=== PATIENT | female | born 1985 | race African-American/Black ===

== ENCOUNTER 2017-05-07 02:40 | Inpatient (IN) | payer OTHER ==
[2017-05-07] MEDS ORDERED: ELECTROLYTE-148 SOLN 500 ML IV ONE (03:59)
[2017-05-07] MEDS ORDERED: BUTORPHANOL TARTRATE 1 MG/ML VIAL IVPUSH ONE (09:35)
[2017-05-07] MEDS ORDERED: PROMETHAZINE HCL 25 MG/1 ML VIAL IVPUSH ONE (09:36)
[2017-05-07] MEDS ORDERED: AMPICILLIN - 2 GM in SODIUM CHLORIDE 100 ML IVPB ONE (09:36)
[2017-05-07 10:21] VITALS: BMI 35.5
[2017-05-07 10:21] LABS: BASOPHIL 0.3 % (0-2.0); EOSINOPHIL 0.3 % (0-4.5); MCHC 32.7 g/dl (32.0-36.0); MEAN CELL VOLUME 85.7 fl (80-96); MEAN PLT VOLUME 10.4 fl (7.5-11.1); PLATELET COUNT 167 K/MM3 (134-434); RDW 15.8 % (11.6-15.6); WHITE BLOOD COUNT 10.6 K/mm3 (4.0-10.0)
[2017-05-07 10:45] LABS: CO2 21 mmol/L (21-32); CREATININE 0.8 mg/dL (0.55-1.02); GLUCOSE,RANDOM 166 mg/dL (74-106)
[2017-05-07 10:46] LABS: ANION GAP 10 (8-16); CALCIUM 8.3 mg/dL (8.5-10.1)
[2017-05-07 10:55] LABS: INR 1.02 (0.82-1.09); PROTHROMBIN TIME (PATIENT) 11.2 SEC (9.98-11.88)
[2017-05-07] MEDS: AMPICILLIN - 1 GM in SODIUM CHLORIDE 100 ML IVPB SCH ×3 (14:30→22:00)
[2017-05-07] MEDS: ELECTROLYTE-148 SOLN 1,000 ML IV SCH (20:00)
--- NOTE | 2017-05-07 21:11 | HP ---
Past Medical History - Primary Care Physician PCP:: Yesika Johns - Admission Chief Complaint: Early Labor. GDM History of Present Illness: 31 yo EDC EGA 39.3 week admitted in early labor. Pregnacy complicated by obesity and GDM on Gybride History Source: Patient - Past Medical History Pulmonary: Yes: Asthma ...: 4 ...Para: 1 ...Term: 1 ...: 0 ...Spon : 0 ...Induced : 2 ...LMP: 08/04/16 ... Weeks Gestation by Dates: 39.3 ...EDC by Dates: 05/11/17 ...EDC by Sono: 05/10/17 Additional OB History: 2009 5 lb 15 oz ENT: Yes: Allergic Rhinitis Additional Medical History: Chronic back pain. abn pap smears. Back injury. Sleep apnea - Past Surgical History Past Surgical History: Yes: None Hx Myomectomy: No Hx Transabdominal Cerclage: No - Smoking History Smoking history: Never smoked Have you smoked in the past 12 months: No Aproximately how many cigarettes per day: 0 - Alcohol/Substance Use Hx Alcohol Use: No History of Substance Use: reports: None - Social History Usual Living Arrangement: Yes: With Spouse History of Recent Travel: No Home Medications - Allergies Allergies/Adverse Reactions: Allergies Allergy/AdvReac Type Severity Reaction Status Date / Time No Known Allergies Allergy Verified 05/08/17 08:28 - Home Medications Home Medications: Ambulatory Orders Albuterol Sulfate Inhaler - [Ventolin Hfa Inhaler -] 1 - 2 inh PO PRN 09/07/16 Fluticasone Propionate [Flonase Allergy Relief] 9.9 ml NS DAILY 05/06/17 Folic Acid 1 mg PO DAILY 05/06/17 Glyburide 2.5 mg PO BID 05/06/17 Vitamins (Sjr) - 1 tab PO DAILY 05/06/17 Ibuprofen [Motrin -] 600 mg PO QID PRN #28 tablet 05/12/17 Oxycodone HCl/Acetaminophen [Percocet 5-325 mg Tablet -] 1 tab PO Q4H #30 tablet MDD 6 05/12/17 Labetalol HCl [Normodyne -] 200 mg PO Q6H #120 tablet 05/14/17 Review of Systems - Review of Systems Constitutional: reports: No Symptoms Eyes: reports: No Symptoms HENT: reports: No Symptoms Neck: reports: No Symptoms Cardiovascular: reports: No Symptoms Respiratory: reports: No Symptoms Gastrointestinal: reports: No Symptoms Genitourinary: reports: No Symptoms Breasts: reports: No Symptoms Reported Musculoskeletal: reports: No Symptoms Integumentary: reports: No Symptoms Neurological: reports: No Symptoms Endocrine: reports: No Symptoms Hematology/Lymphatic: reports: No Symptoms Psychiatric: reports: No Symptoms Physical Exam - Maternity Vital Signs: Vital Signs Temperature 98.2 F 05/07/17 18:00 Pulse Rate 102 H 05/07/17 20:00 Respiratory Rate 18 05/07/17 20:00 Blood Pressure 138/70 05/07/17 20:00 O2 Sat by Pulse Oximetry (%) Constitutional: Yes: Well Nourished, No Distress Neck: Yes: WNL Cardiovascular: Yes: WNL Lungs: Clear to auscultation Breast(s): Yes: WNL - Abdominal Exam/OB Fundal Height: 40 Number of Fetuses: Single Presentation: Vertex Contractions: Yes Regularity: Irregular Monitor Mode: External Category: I Accelerations: Non-Uniform Decelerations: None - Vaginal Exam/OB Amniotic Membrane Status: Intact Presentation: Vertex/Position Station: -2 - Physical Exam Musculoskeletal: Yes: WNL Extremities: Yes: WNL Edema: No - Labs Lab Results: CBC, BMP 05/07/17 09:55 05/07/17 09:55 Hemorrhage Risk Assessment - Risk Factors Risk Score: 1 Risk Level: Medium Risk Problem List - Problems (1) Labor established Code(s): ALF7208 - (2) Gestational diabetes mellitus (GDM) affecting second Code(s): O24.419 - GESTATIONAL DIABETES MELLITUS IN , UNSP CONTROL O09.40 - SUPERVISION OF W GRAND MULTIPARITY, UNSP TRIMESTER (3) Obesity affecting in third trimester Code(s): O99.213 - OBESITY COMPLICATING , THIRD TRIMESTER Assessment/Plan iup @ 39.3 week Early Labor Hx GDM on gybride obesity Ho sleep apnea Hx asthma Cat 1 Plan finger sticks Pitocin augmentaion
[2017-05-07] MEDS ORDERED: OXYTOCIN 15 UNITS/ LR 250 ML 250 ML IVPB SCH (21:15)
[2017-05-08] MEDS ORDERED: BUTORPHANOL TARTRATE 1 MG/ML VIAL IVPB ONE (01:15)
[2017-05-08] MEDS ORDERED: PROMETHAZINE HCL 25 MG/1 ML VIAL IVPB ONE (01:15)
[2017-05-08] MEDS: AMPICILLIN - 1 GM in SODIUM CHLORIDE 100 ML IVPB SCH ×6 (02:00→22:04)
--- NOTE | 2017-05-08 02:40 | PN ---
Ante-Partal Exam - Subjective Vital Signs: Vital Signs Temperature 97.9 F 05/08/17 01:00 Pulse Rate 93 H 05/08/17 01:00 Respiratory Rate 18 05/08/17 01:00 Blood Pressure 116/60 05/08/17 01:00 O2 Sat by Pulse Oximetry (%) Bleeding: No Headache: No Visual changes: No Right upper quadrant pain: No - Contractions Contractions: Yes - Exam during Labor Category: I Monitor Accelerations: Present Exam: Vaginal Dilatation (cm): 2 Effacement (%): 70 Amniotic Membrane Status: Intact Presentation: Vertex Station: -2 - Intrapartum Hemorrhage Risk Risk Score: 0 Risk Level: Low Risk - Assessment/Plan Assessment/Plan: Labor - 1st stage Hx f prodromal labor Cat 1 Plan continue pitocin
[2017-05-08] MEDS: ELECTROLYTE-148 SOLN 1,000 ML IV SCH ×2 (05:00→19:55)
--- NOTE | 2017-05-08 14:34 | PN ---
Ante-Partal Exam - Subjective Subjective: Pt feeling occasional contractions, ambulating. Vital Signs: Vital Signs Temperature 98.2 F 05/08/17 14:00 Pulse Rate 83 05/08/17 14:00 Respiratory Rate 20 05/08/17 14:00 Blood Pressure 134/81 05/08/17 14:00 O2 Sat by Pulse Oximetry (%) Bleeding: No Headache: No Visual changes: No Right upper quadrant pain: No Pain (scale 1-10): 3 - Contractions Contractions: Yes Regularity: Irregular Intensity: Mild - Exam during Labor Variability: Moderate Category: I Monitor Accelerations: Present Monitor Decelerations: None Exam: Vaginal Dilatation (cm): 2.5 Effacement (%): 70 Amniotic Membrane Status: Intact Presentation: Vertex Station: -2 - Assessment/Plan Assessment/Plan: Continue pitocin augmentation for AROM once begins making progress (4-5cm) GBS positive, continue ampicillin
--- NOTE | 2017-05-08 18:28 | PN ---
Ante-Partal Exam - Subjective Subjective: Pt feeling improved s/p stadol/phenergan, tolerating contractions. Vital Signs: Vital Signs Temperature 98.2 F 05/08/17 14:00 Pulse Rate 89 05/08/17 17:00 Respiratory Rate 20 05/08/17 17:00 Blood Pressure 145/78 05/08/17 17:00 O2 Sat by Pulse Oximetry (%) Bleeding Description: Mild Headache: No Visual changes: No Right upper quadrant pain: No Pain (scale 1-10): 5 - Contractions Contractions: Yes Regularity: Regular Intensity: Mod/Strong - Exam during Labor Heart Rate: 145 Variability: Minimal Category: I Monitor Accelerations: Present Monitor Decelerations: None Exam: Vaginal Dilatation (cm): 3 Amniotic Membrane Status: Ruptured (AROM for light meconium this examination) Presentation: Vertex Station: -2 - Assessment/Plan Assessment/Plan: 31 y/o P1 with SIUP at 39 weeks, early labor now augmented - AFVSS - FHTs cat 1 - s/p AROM for light meconium at this visit, continue with pitocin, continue active management - GBS positive, continue ampicillin
[2017-05-08] MEDS ORDERED: FENTANYL/BUPIVACAINE/NS/PF - PCEA - 50 ML DISP.SYRIN EP SCH (20:15)
--- NOTE | 2017-05-08 21:15 | PN ---
Ante-Partal Exam - Subjective Subjective: Came to evaluate patient for recurrent variable decelerations. Patient feeling pelvic pressure. Vital Signs: Vital Signs Temperature 98.4 F 05/08/17 18:00 Pulse Rate 101 H 05/08/17 18:00 Respiratory Rate 20 05/08/17 18:00 Blood Pressure 125/56 05/08/17 18:00 O2 Sat by Pulse Oximetry (%) Bleeding: Yes Headache: No Visual changes: No Right upper quadrant pain: No Pain (scale 1-10): 2 - Contractions Contractions: Yes Regularity: Regular Intensity: Strong Monitor Mode: External - Exam during Labor Heart Rate: 145 Variability: Moderate Heart Rate Location: [facility] Category: II Monitor Accelerations: Absent Monitor Decelerations: Variable Exam: Vaginal Dilatation (cm): 6 Effacement (%): 90 Amniotic Membrane Status: Ruptured Nitrazine Test: Positive Amniotic Fluid: Meconium Stained Meconium Staining: Light Presentation: Vertex Station: -1 - Assessment/Plan Assessment/Plan: 31 y/o P1 with SIUP at 39 weeks, early labor, augmented - FHTS cat 2 with recurrent variable decels - amnioinfusion started at this time, patient making progress cervix now 6cm, will monitor closely - if no improvement in tracing or if no further progress will plan for delivery
--- NOTE | 2017-05-08 22:32 | PN ---
Ante-Partal Exam - Subjective Subjective: Patient feeling more pain/rectal pressure. Vital Signs: Vital Signs Temperature 98.1 F 05/08/17 21:55 Pulse Rate 115 H 05/08/17 21:30 Respiratory Rate 20 05/08/17 21:30 Blood Pressure 124/68 05/08/17 21:30 O2 Sat by Pulse Oximetry (%) 100 05/08/17 21:30 Bleeding: Yes Bleeding Description: Mild Headache: No Visual changes: No Right upper quadrant pain: No Pain (scale 1-10): 5 - Contractions Contractions: Yes Regularity: Regular Intensity: Strong Monitor Mode: External - Exam during Labor Heart Rate: 150 Variability: Moderate Category: II Monitor Accelerations: Absent Monitor Decelerations: Variable (nonrecurrent) Exam: Vaginal Dilatation (cm): 7 Effacement (%): 90 Amniotic Membrane Status: Ruptured Presentation: Vertex Station: -1 - Assessment/Plan Assessment/Plan: 31 y/o with SIUP at 39+ weeks, early labor now augmented - Fhts improving s/p amnioinfusion - variables now not recurrent and tracing with moderate variability - cervix continues to dilate, now 7cm dilated - pt with discomfort - anesthesia here to give bolus - continue active management and amnioinfusion
[2017-05-08] MEDS ORDERED: ACETAMINOPHEN 1000 MG/100 ML VIAL (NON FORMULARY) IVPB ONE (22:49)
--- NOTE | 2017-05-09 00:54 | PN ---
Ante-Partal Exam - Subjective Subjective: Pt comfortable with contractions. Had another episode of recurrent variables for 3 contractions. Pt was switched to her left side. Pitocin off since 2249. Vital Signs: Vital Signs Temperature 99.8 F H 05/09/17 00:00 Pulse Rate 108 H 05/09/17 00:00 Respiratory Rate 20 05/09/17 00:00 Blood Pressure 119/58 05/09/17 00:00 O2 Sat by Pulse Oximetry (%) 100 05/08/17 23:55 Bleeding: Yes Headache: No Visual changes: No Right upper quadrant pain: No - Contractions Contractions: Yes Regularity: Regular Intensity: Mild Monitor Mode: External - Exam during Labor Heart Rate: 155 Variability: Moderate Category: II Monitor Accelerations: Present Monitor Decelerations: Variable (nonrecurrent) Exam: Vaginal Dilatation (cm): 7-8 Effacement (%): 90 Amniotic Membrane Status: Ruptured Nitrazine Test: Positive Amniotic Fluid: Meconium Stained Meconium Staining: Light Presentation: Vertex Station: -2 - Assessment/Plan Assessment/Plan: 31 y/o with SIUP at 39+ weeks, early labor, augmented - FHTS cat 2, less frequent variable decelerations, continuous monitoring, continue amnioinfusion. Reassuring variability and accels. Will monitori - early labor, augmented, pt oswaldo without pitocin, will leave pitocin off at this time - had fever 100.5 at 2250, s/p 1000mg IV Acetaminophen, Temperature within normal range now - GBS positive, continue ampicillin - continue current management
[2017-05-09] MEDS: AMPICILLIN - 1 GM in SODIUM CHLORIDE 100 ML IVPB SCH ×4 (02:00→17:44)
[2017-05-09] MEDS: ELECTROLYTE-148 SOLN 1,000 ML IV SCH ×3 (05:00→23:17)
--- NOTE | 2017-05-09 05:43 | PN ---
Ante-Partal Exam - Subjective Subjective: Patient comfortable. Continues to have nonrecurrent variable decelerations. Vital Signs: Vital Signs Temperature 98.5 F 05/09/17 04:00 Pulse Rate 110 H 05/09/17 04:30 Respiratory Rate 20 05/09/17 04:30 Blood Pressure 115/55 05/09/17 04:30 O2 Sat by Pulse Oximetry (%) 100 05/09/17 04:30 Bleeding: No Headache: No Visual changes: No Right upper quadrant pain: No Pain (scale 1-10): 0 - Contractions Contractions: Yes Regularity: Regular Intensity: Mild/Mod Monitor Mode: External - Exam during Labor Heart Rate: 155 Variability: Moderate Category: II Monitor Accelerations: Present Monitor Decelerations: Variable Exam: Vaginal Dilatation (cm): 7 Effacement (%): 90 Amniotic Membrane Status: Ruptured Presentation: Vertex Station: -2 - Assessment/Plan Assessment/Plan: 31 y/o with SIUP at 39 weeks, labor, augmented - FHTS cat 2, still with accelerations and now recurrent variable decelerations , will continue to monitor - cervix with no change since 10pm - will plan for delivery due to arrest of dilation and tayla caontinutegory 2 tracing - nursing aware, will inform anesthesia and nursery
[2017-05-09] MEDS ORDERED: oxyCODONE HCL 5 MG TABLET PO PRN (07:21)
[2017-05-09] MEDS ORDERED: METHYLERGONOVINE MALEATE 0.2 MG/1 ML AMP IM PRN (07:21)
[2017-05-09] MEDS ORDERED: ONDANSETRON 4 MG/2 ML VIAL IVPB PRN (08:06)
[2017-05-09] MEDS ORDERED: ACETAMINOPHEN 1000 MG/100 ML VIAL (NON FORMULARY) IVPB PRN (08:08)
[2017-05-09 08:19] LABS: ARTERIAL BLD GAS O2 SATURATION 23.6 % (90-98.9); ARTERIAL BLOOD GAS BASE EXCESS -3.3 meq/l (-2-2); ARTERIAL BLOOD GAS HCO3 23.6 meq/L (22-26)
[2017-05-09 08:23] LABS: ARTERIAL BLOOD GAS pH 7.27 (7.35-7.45)
[2017-05-09 08:24] LABS: ARTERIAL BLOOD GAS PO2 15.4 mmHg (80-100)
--- NOTE | 2017-05-09 08:24 | OP ---
Operative Note - Note: Operative Date: 05/09/17 (dictation number [id number]) Pre-Operative Diagnosis: SIUP at 39 weeiks, arrest of dilation, variable decelerations, category 2 tracing Operation: primary delivery Findings: normal b/l fallopian tubes and ovaries Post-Operative Diagnosis: Same as Pre-op Surgeon: Anna Valdovinos [employer] Operator: Susan Roblero Anesthesiologist/ART SUPERVISOR: Brady Leavitt Anesthesia: Epidural Specimens Removed: placenta, cord blood gases Estimated Blood Loss (mls): 600 Operative Report Dictated: Yes
[2017-05-09 08:25] LABS: VENOUS BLOOD GAS HCO3 21.1 meq/L (19-25); VENOUS PH 7.33 (7.32-7.42)
--- NOTE | 2017-05-09 09:17 | OP ---
DATE OF OPERATION: 05/09/2017 PREOPERATIVE DIAGNOSIS: Arrest of dilation, recurrent variable decelerations, and single intrauterine at 39 weeks. POSTOPERATIVE DIAGNOSIS: Arrest of dilation, recurrent variable decelerations, and single intrauterine at 39 weeks, with delivery of viable male . PROCEDURE: Primary low transverse section. SURGEON: Anna Valdovinos DO LOCOMOTIVE FIRER: Cindi Roblero. ANESTHESIA: Epidural and this was by Brady Leavitt MD, monitored by Ayan Mart MD, and also, Emelia Espinoza MD. ESTIMATED BLOOD LOSS: 600 mL COMPLICATIONS: None. SPECIMENS: Include placenta. FINDINGS: Include normal bilateral fallopian tubes and ovaries. DISPOSITION: Stable to recovery room. BRIEF HISTORY AND DESCRIPTION OF PROCEDURE: Patient is a 31-year-old female who was admitted to labor and delivery on May 07, 2017, with complaints of painful contractions. Patient was observed throughout the day on May 07, 2017, and then, on the evening of May 07, 2017, was noted to have made minimal cervical change. It was decided to augment the patient with Pitocin at this time. Placed on Pitocin throughout the evening on May 07 and throughout the day on May 08, 2017. The patient's membranes were artificially ruptured on the evening of May 08, 2017, for light meconium-stained fluid. The patient was remained on Pitocin throughout the evening, and at approximately 10 p.m., due to recurrent variable decelerations, the Pitocin was discontinued. The patient had received an epidural for pain control, which was keeping the patient comfortable at this time. Due to continued variable decelerations, even without the Pitocin, the patient was kept off the Pitocin throughout the rest of the evening. The patient at this time had arrested at 7 cm dilation. On the morning of May 09, 2017, the patient was re-examined and found to just still be 7 cm dilated. After a discussion of options with the patient, she elected to undergo a primary delivery. The patient was taken back to the operating room. The epidural anesthesia, which she had already received, had been bolused. She was placed in the dorsal supine position. A Reeves catheter was already placed under sterile conditions prior. A hard timeout was performed. Next, a Pfannenstiel skin incision was created in the skin using a scalpel and carried to the underlying layer of rectus fascia with the Bovie. The rectus fascia was incised on either side of the midline with the Bovie, and the fascia was carried in a superolateral direction with the Bovie. The fascia was tented upward and dissected off the underlying layer of rectus muscle with the Bovie. The midline of the musculature was identified. The muscle layers were retracted laterally, and the peritoneum was entered bluntly. A bladder blade was inserted. A transverse incision was created in the uterus with a scalpel, and this incision was carried in a superolateral direction bluntly. The was then delivered from the left occiput posterior position. After delivery of the head, 2 tight nuchal cords were appreciated. Those were reduced after delivery of the head. The remainder of the delivered with ease. The cord was clamped twice and cut in between. The was taken over to the warmer to be assessed by neonatology staff who was present for the entire delivery. The scores were 9 and 9. cord gases were collected, and cord blood was collected at this time. The placenta was manually extracted from the uterus. The uterus was exteriorized from the abdomen, inspected, and cleared of all amniotic membrane and debris with a dry lap sponge. Hysterotomy was then reapproximated in a double-layer closure in a running, locked fashion. Both tubes and ovaries appeared to be normal. The posterior cul-de-sac was suctioned. The uterus was placed back into the abdomen. Bilateral gutters were inspected and cleared of all debris. The hysterotomy was again inspected and noted to be hemostatic. The peritoneal layer was reapproximated in a running fashion using 2-0 chromic suture. The musculature was reapproximated in 2 interrupted sutures using 2-0 chromic as well as Biosyn suture, and the fascia was reapproximated using 1 Vicryl in a running fashion. The subcutaneous tissue was irrigated and reapproximated using 1 Vicryl in a running fashion, and the skin was reapproximated using 3-0 Vicryl in a subcuticular fashion. Steri-Strips were applied. Estimated blood loss was 600 mL. Sponge, needle, and instrument count was reported to be correct. The patient tolerated the procedure well, was recovering in stable condition in the recovery room at the time of this dictation. ANNA VALDOVINOS DO /[id number]
--- NOTE | 2017-05-09 09:22 | SURG ---
Surgery School Admissions Representative Note School Admissions Representative: Susan Roblero PA-C Date of Service: 05/09/17 Diagnosis: SIUP at 39 weeiks, arrest of dilation, variable decelerations, category 2 tracing Procedure: primary delivery I was present for the entirety of the operative procedure. For further detail, please refer to operative report. Visit type - Case Type Case Type: ED Admission - New patient This patient is new to me today: Yes Date on this admission: 05/09/17
[2017-05-09] MEDS: FERROUS SO4 325 MG TABLET (FP) PO SCH ×3 (10:33→23:19)
[2017-05-09] MEDS: PRENATAL VITAMINS W/ FOLIC ACID TABLET (FP) PO SCH (10:33)
[2017-05-09] MEDS: OXYTOCIN 20 UNITS in 0.9% NS 1,000 ML IV SCH ×2 (11:25→20:01)
[2017-05-09] MEDS: IBUPROFEN 800 MG/8 ML IJ IVPB PRN ×2 (15:33→22:57)
[2017-05-09] MEDS: SIMETHICONE 80 MG TAB.CHEW (FP) PO PRN (22:58)
[2017-05-10] MEDS: oxyCODONE HCL 5 MG TABLET PO PRN ×6 (02:13→22:32)
[2017-05-10] MEDS: SIMETHICONE 80 MG TAB.CHEW (FP) PO PRN ×6 (02:13→22:30)
[2017-05-10] MEDS: IBUPROFEN 600 MG TABLET (FP) PO PRN ×5 (05:07→22:33)
[2017-05-10] MEDS ORDERED: BISACODYL 10 MG SUPP.RECT RC PRN (07:22)
[2017-05-10 08:15] LABS: BASOPHIL 0.4 % (0-2.0); EOSINOPHIL 0.3 % (0-4.5); MCHC 32.2 g/dl (32.0-36.0); MEAN CELL VOLUME 87.1 fl (80-96); MEAN PLT VOLUME 9.8 fl (7.5-11.1); PLATELET COUNT 144 K/MM3 (134-434); RDW 15.8 % (11.6-15.6); WHITE BLOOD COUNT 13.3 K/mm3 (4.0-10.0)
--- NOTE | 2017-05-10 09:00 | PN ---
Post Progress Note - Subjective Subjective: Pt seen/evaluated at bedside. Patient doing well, pain controlled. Tolerating clears, ambulating. Voiding. VB minimal. Denies CP/SOB/F/C/HALL. No other complaints/concerns. Type of Delivery: Repeat C/S Vital Signs: Vital Signs Temperature 98.6 F 05/10/17 05:23 Pulse Rate 98 H 05/10/17 05:23 Respiratory Rate 18 05/10/17 05:23 Blood Pressure 120/61 05/10/17 05:23 O2 Sat by Pulse Oximetry (%) 100 05/09/17 09:45 Breast Exam: Yes: Soft Uterus: Yes: Fundus Firm, Fundus below umbilicus Incision: Yes: Dressing dry and intact Abdomen/GI: Yes: Abdomen soft, Tender (appropriately TTP), Tolerating PO. No: Abdominal Distention Lochia: Yes: Rubra Lochia, amount: Small Extremities: Yes: Calves non-tender, Edema (trace LE edema b/l) Perineum: Yes: Intact Activity: Ambulating - Labs Labs: CBC WBC 13.3 K/mm3 (4.0-10.0) H 05/10/17 07:50 RBC 3.16 M/mm3 (3.60-5.2) L 05/10/17 07:50 Hgb 8.9 GM/dL (10.7-15.3) L D 05/10/17 07:50 Hct 27.5 % (32.4-45.2) L D 05/10/17 07:50 MCV 87.1 fl (80-96) 05/10/17 07:50 MCHC 32.2 g/dl (32.0-36.0) 05/10/17 07:50 RDW 15.8 % (11.6-15.6) H 05/10/17 07:50 Plt Count 144 K/MM3 (134-434) 05/10/17 07:50 MPV 9.8 fl (7.5-11.1) 05/10/17 07:50 Neutrophils % 79.0 % (42.8-82.8) 05/10/17 07:50 Lymphocytes % 15.5 % (8-40) 05/10/17 07:50 Monocytes % 4.8 % (3.8-10.2) 05/10/17 07:50 Eosinophils % 0.3 % (0-4.5) 05/10/17 07:50 Basophils % 0.4 % (0-2.0) 05/10/17 07:50 Problem List - Problems (1) delivery delivered Code(s): O82 - ENCOUNTER FOR DELIVERY WITHOUT INDICATION (2) Anemia Code(s): D64.9 - ANEMIA, UNSPECIFIED Assessment/Plan 31 y/o POD # 1 s/p primary delivery due to arrest of dilation and recurrent variable decelerations - AFVSS - Hgb 8.9 post op - continue pills and PO Iron - advance diet as tolerated - PO pain meds - routine care
--- NOTE | 2017-05-10 10:00 | PN ---
Progress Note (short form) - Note Progress Note: POD #1 - s/p under epidural anesthesia. Pt. doing well, resting comfortably in bed. No complaints. Good pain control. No apparent anesthetic complications noted. Continue current care.
[2017-05-10] MEDS: PRENATAL VITAMINS W/ FOLIC ACID TABLET (FP) PO SCH (11:10)
[2017-05-10] MEDS: FERROUS SO4 325 MG TABLET (FP) PO SCH (11:10)
[2017-05-10] MEDS: ENOXAPARIN NA (PORCINE) 40 MG/0.4 ML DISP.SYRIN SQ SCH (11:10)
[2017-05-11] MEDS: SIMETHICONE 80 MG TAB.CHEW (FP) PO PRN ×4 (04:30→17:29)
[2017-05-11] MEDS: oxyCODONE HCL 5 MG TABLET PO PRN ×5 (04:32→21:33)
[2017-05-11] MEDS: IBUPROFEN 600 MG TABLET (FP) PO PRN ×5 (04:33→21:34)
--- NOTE | 2017-05-11 08:40 | PN ---
Post Progress Note - Subjective Subjective: Patient seen and evaluated, doing well. Post Day: 2 Type of Delivery: Repeat C/S Vital Signs: Vital Signs Temperature 98.4 F 05/11/17 07:30 Pulse Rate 94 H 05/11/17 07:30 Respiratory Rate 20 05/11/17 07:30 Blood Pressure 132/95 05/11/17 07:30 O2 Sat by Pulse Oximetry (%) 100 05/09/17 09:45 Breast Exam: Yes: Soft Uterus: Yes: Fundus Firm Incision: Yes: Dressing dry and intact Abdomen/GI: Yes: Abdomen soft, Tolerating PO Lochia: Yes: Rubra Lochia, amount: Small Extremities: Yes: Calves non-tender Perineum: Yes: Intact Activity: Ambulating - Labs Labs: CBC WBC 13.3 K/mm3 (4.0-10.0) H 05/10/17 07:50 RBC 3.16 M/mm3 (3.60-5.2) L 05/10/17 07:50 Hgb 8.9 GM/dL (10.7-15.3) L D 05/10/17 07:50 Hct 27.5 % (32.4-45.2) L D 05/10/17 07:50 MCV 87.1 fl (80-96) 05/10/17 07:50 MCHC 32.2 g/dl (32.0-36.0) 05/10/17 07:50 RDW 15.8 % (11.6-15.6) H 05/10/17 07:50 Plt Count 144 K/MM3 (134-434) 05/10/17 07:50 MPV 9.8 fl (7.5-11.1) 05/10/17 07:50 Neutrophils % 79.0 % (42.8-82.8) 05/10/17 07:50 Lymphocytes % 15.5 % (8-40) 05/10/17 07:50 Monocytes % 4.8 % (3.8-10.2) 05/10/17 07:50 Eosinophils % 0.3 % (0-4.5) 05/10/17 07:50 Basophils % 0.4 % (0-2.0) 05/10/17 07:50 Problem List - Problems (1) Status post repeat low transverse section Code(s): Z98.891 - HISTORY OF UTERINE SCAR FROM PREVIOUS SURGERY Assessment/Plan Status post repeat Continue ambulation Analgesia as needed Continue Post op care
[2017-05-11] MEDS: PRENATAL VITAMINS W/ FOLIC ACID TABLET (FP) PO SCH (09:25)
[2017-05-11] MEDS: ENOXAPARIN NA (PORCINE) 40 MG/0.4 ML DISP.SYRIN SQ SCH (09:26)
[2017-05-11] MEDS: FERROUS SO4 325 MG TABLET (FP) PO SCH ×2 (09:26→21:33)
[2017-05-11] MEDS: SENNOSIDES/DOCUSATE COMBO (SENNA PLUS) TABLET (UD) PO SCH (21:33)
[2017-05-12] MEDS: IBUPROFEN 600 MG TABLET (FP) PO PRN (02:08)
[2017-05-12] MEDS: oxyCODONE HCL 5 MG TABLET PO PRN ×5 (02:09→22:07)
[2017-05-12] MEDS: SIMETHICONE 80 MG TAB.CHEW (FP) PO PRN ×5 (02:09→22:07)
[2017-05-12] MEDS ORDERED: oxyCODONE HCL 5 MG TABLET ONE (08:13)
[2017-05-12 08:17] LABS: BASOPHIL 0.4 % (0-2.0); EOSINOPHIL 1.3 % (0-4.5); MCH 28.7 pg (25.7-33.7); MCHC 33.1 g/dl (32.0-36.0); MEAN CELL VOLUME 86.9 fl (80-96); MEAN PLT VOLUME 9.1 fl (7.5-11.1); PLATELET COUNT 185 K/MM3 (134-434); RDW 15.9 % (11.6-15.6); WHITE BLOOD COUNT 9.3 K/mm3 (4.0-10.0)
[2017-05-12] MEDS ORDERED: oxyCODONE HCL 5 MG TABLET PO PRN (08:25)
[2017-05-12] MEDS: ACETAMINOPHEN 325 MG TABLET (FP) PO PRN ×4 (08:29→22:08)
--- NOTE | 2017-05-12 08:59 | DS ---
Physical Exam-GUEST ADVISOR Vital Signs: Vital Signs Temperature 97.9 F 05/11/17 21:53 Pulse Rate 89 05/12/17 02:00 Respiratory Rate 20 05/11/17 21:53 Blood Pressure 143/89 05/12/17 02:00 O2 Sat by Pulse Oximetry (%) 100 05/09/17 09:45 Labs: CBC, BMP 05/12/17 07:50 05/07/17 09:55 Delivery - Delivery Type of Anesthesia: Epidural Episiotomy/Laceration: None EBL (cc): 600 Delivery, Single - Stages of Labor Date 1st Stage Initiatied: 05/07/17 Time 1st Stage Initiated: 11:30 Date of Delivery: 05/09/17 Time of Delivery: 07:51 Time Placenta Delivered: 07:52 - Condition of Infant Treatment Counselor/Routeman Present: Yes Name: Jessica Clark Gender: Male Weight: 7 lb 11 oz Position: Left, OP Total Hours ROM (Hrs/Mins): 13hrs 37min - 1 Minute Total Score: 9 5 Minutes Total Score: 9 - Feeding Plan Initial Plan: Elected not to breastfeed exclusively throughout hospitalization Discharge Summary Reason For Visit: LABOR Current Active Problems Anemia (Acute) delivery delivered (Acute) Labor established (Acute) Status post repeat low transverse section (Acute) Condition: Good - Instructions Disposition: HOME - Home Medications Comprehensive Discharge Medication List: Ambulatory Orders Albuterol Sulfate Inhaler - [Ventolin Hfa Inhaler -] 1 - 2 inh PO PRN 09/07/16 Fluticasone Propionate [Flonase Allergy Relief] 9.9 ml NS DAILY 05/06/17 RX: Folic Acid 1 mg PO DAILY 05/06/17 RX: Glyburide 2.5 mg PO BID 05/06/17 RX: Vitamins (Sjr) - 1 tab PO DAILY 05/06/17
[2017-05-12] MEDS: FERROUS SO4 325 MG TABLET (FP) PO SCH ×2 (09:23→22:07)
[2017-05-12] MEDS: PRENATAL VITAMINS W/ FOLIC ACID TABLET (FP) PO SCH (09:23)
[2017-05-12] MEDS: ENOXAPARIN NA (PORCINE) 40 MG/0.4 ML DISP.SYRIN SQ SCH (09:26)
[2017-05-12 10:50] LABS: ALBUMIN 1.9 g/dl (3.4-5.0); ANION GAP 8 (8-16); BILIRUBIN,TOTAL 0.3 mg/dL (0.2-1.0); CALCIUM 8.2 mg/dL (8.5-10.1); CO2 26 mmol/L (21-32); CREATININE 0.5 mg/dL (0.55-1.02); GLUCOSE,RANDOM 134 mg/dL (74-106); SGOT/AST 28 U/L (15-37); SGPT/ALT 21 U/L (12-78); TOT PROT 5.3 g/dl (6.4-8.2)
[2017-05-12 10:51] LABS: ALK PHOS 84 U/L (45-117)
[2017-05-12 11:09] LABS: URIC ACID 2.7 mg/dL (2.6-7.2)
[2017-05-12] MEDS: NIFEdipine E.R. 30 MG TABLET (FP) PO SCH (16:35)
--- NOTE | 2017-05-12 16:53 | PN ---
Post Progress Note - Subjective Subjective: Pt seen/evaluated, doing well. Patient with elevated BPs this a.m., most recently as high as 161/101. Patient with slight HALL but no RUQ pain or changes in vision. HELLP/PreEclampsia labs all WNL. Pt with no h/o HTN. Type of Delivery: Primary C/S Vital Signs: Vital Signs Temperature 98.4 F 05/12/17 08:00 Pulse Rate 90 05/12/17 15:01 Respiratory Rate 20 05/12/17 08:00 Blood Pressure 161/101 05/12/17 15:01 O2 Sat by Pulse Oximetry (%) 100 05/09/17 09:45 Uterus: Yes: Fundus Firm, Fundus below umbilicus Incision: Yes: Sutures intact Abdomen/GI: Yes: Abdomen soft, Abdominal Distention (mild distention), Passing flatus, Tolerating PO. No: Tender Lochia, amount: Small Extremities: Yes: Calves non-tender, Edema (+1 LE Edema bilaterally, +2 reflexes, no clonus) Perineum: Yes: Intact Activity: Ambulating - Labs Labs: CBC WBC 9.3 K/mm3 (4.0-10.0) D 05/12/17 07:50 RBC 3.21 M/mm3 (3.60-5.2) L 05/12/17 07:50 Hgb 9.2 GM/dL (10.7-15.3) L 05/12/17 07:50 Hct 27.9 % (32.4-45.2) L 05/12/17 07:50 MCV 86.9 fl (80-96) 05/12/17 07:50 MCHC 33.1 g/dl (32.0-36.0) 05/12/17 07:50 RDW 15.9 % (11.6-15.6) H 05/12/17 07:50 Plt Count 185 K/MM3 (134-434) D 05/12/17 07:50 MPV 9.1 fl (7.5-11.1) 05/12/17 07:50 Neutrophils % 74.0 % (42.8-82.8) 05/12/17 07:50 Lymphocytes % 19.6 % (8-40) D 05/12/17 07:50 Monocytes % 4.7 % (3.8-10.2) 05/12/17 07:50 Eosinophils % 1.3 % (0-4.5) D 05/12/17 07:50 Basophils % 0.4 % (0-2.0) 05/12/17 07:50 Problem List - Problems (1) delivery delivered Code(s): O82 - ENCOUNTER FOR DELIVERY WITHOUT INDICATION (2) Anemia Code(s): D64.9 - ANEMIA, UNSPECIFIED (3) Gestational hypertension without significant proteinuria, Code(s): O13.5 - GESTATNL HTN WITHOUT SIGNIFICANT PROTEIN, COMP THE PUERP Assessment/Plan 31 y/o post op day 3 from primary delivery - AFebrile - elevated BPs, to start on oral antihypertensives. Labs WNL. If non responsive to meds, will consult nephrology in a.m. Tylenol PRN headache. - Regular diet, PO pain meds, ambulation, lovenox for VTE PPx - routine care
[2017-05-12] MEDS: SENNOSIDES/DOCUSATE COMBO (SENNA PLUS) TABLET (UD) PO SCH (22:07)
[2017-05-13] MEDS: oxyCODONE HCL 5 MG TABLET PO PRN ×5 (02:23→21:33)
[2017-05-13] MEDS: ACETAMINOPHEN 325 MG TABLET (FP) PO PRN ×5 (02:23→21:31)
[2017-05-13] MEDS: SIMETHICONE 80 MG TAB.CHEW (FP) PO PRN ×5 (02:23→21:34)
[2017-05-13] MEDS: NIFEdipine E.R. 30 MG TABLET (FP) PO SCH (10:19)
[2017-05-13] MEDS: FERROUS SO4 325 MG TABLET (FP) PO SCH ×2 (10:19→21:33)
[2017-05-13] MEDS: PRENATAL VITAMINS W/ FOLIC ACID TABLET (FP) PO SCH (10:19)
[2017-05-13] MEDS: ENOXAPARIN NA (PORCINE) 40 MG/0.4 ML DISP.SYRIN SQ SCH (10:20)
--- NOTE | 2017-05-13 11:56 | PN ---
Post Progress Note - Subjective Subjective: Pt seen/evaluated and doing well. Eating, tolerting diet, voiding, pasing flatus. Blood pressures mostly in mild range with some severe range outliers. Denies HALL/RUQp pain/changes in vision. Now on Procardia XL daily. Type of Delivery: Primary C/S Vital Signs: Vital Signs Temperature 98.0 F 05/12/17 22:00 Pulse Rate 105 H 05/13/17 11:44 Respiratory Rate 20 05/13/17 11:44 Blood Pressure 142/91 05/13/17 11:44 O2 Sat by Pulse Oximetry (%) 100 05/09/17 09:45 Uterus: Yes: Fundus Firm, Fundus below umbilicus Incision: Yes: Sutures intact Abdomen/GI: Yes: Abdomen soft, Passing flatus, Tolerating PO. No: Abdominal Distention, Tender Lochia: Yes: Rubra Lochia, amount: Small Extremities: Yes: Edema (+1 LE edema b/l ) Perineum: Yes: Intact Activity: Ambulating - Labs Labs: CBC WBC 9.3 K/mm3 (4.0-10.0) D 05/12/17 07:50 RBC 3.21 M/mm3 (3.60-5.2) L 05/12/17 07:50 Hgb 9.2 GM/dL (10.7-15.3) L 05/12/17 07:50 Hct 27.9 % (32.4-45.2) L 05/12/17 07:50 MCV 86.9 fl (80-96) 05/12/17 07:50 MCHC 33.1 g/dl (32.0-36.0) 05/12/17 07:50 RDW 15.9 % (11.6-15.6) H 05/12/17 07:50 Plt Count 185 K/MM3 (134-434) D 05/12/17 07:50 MPV 9.1 fl (7.5-11.1) 05/12/17 07:50 Neutrophils % 74.0 % (42.8-82.8) 05/12/17 07:50 Lymphocytes % 19.6 % (8-40) D 05/12/17 07:50 Monocytes % 4.7 % (3.8-10.2) 05/12/17 07:50 Eosinophils % 1.3 % (0-4.5) D 05/12/17 07:50 Basophils % 0.4 % (0-2.0) 05/12/17 07:50 Problem List - Problems (1) delivery delivered Code(s): O82 - ENCOUNTER FOR DELIVERY WITHOUT INDICATION (2) Anemia Code(s): D64.9 - ANEMIA, UNSPECIFIED (3) Gestational hypertension without significant proteinuria, Code(s): O13.5 - GESTATNL HTN WITHOUT SIGNIFICANT PROTEIN, COMP THE PUERP Assessment/Plan 31 y/o post op day 4 from primary delivery - AFebrile - elevated BPs, Now on Procardia XL 30mg daily . Labs WNL yesterday. BP responds to medication will send Rx with patient upon discharge. Will trend BPs for the remainder of the morning and if remain >160/100 will discharge home with close follow up in office and preEclampsia precautions. Tylenol PRN headache. - Regular diet, PO pain meds, ambulation, lovenox for VTE PPx - routine care
--- NOTE | 2017-05-13 14:16 | PATH ---
Surgical Pathology Report Patient Name: REI MOREAU [facility]. Rec. #: [id number] /Age/Gender: 1985 (Age: 31) / F Account: [id number] Location: [facility] OBS/DOCTOR OF AUDIOLOGY Taken: 05/09/2017 Received: 05/09/2017 Reported: 05/13/2017 Physicians: Yesika Johns M.D. Specimen(s) Received PLACENTA Clinical History , 39.6 weeks gestation, nonreassuring heart rate, arrest of dilatation Primary c/section Final Diagnosis PLACENTA, DELIVERY: FOCALLY DISRUPTED THIRD TRIMESTER PLACENTA WITH MODERATE PREVILLOUS, PERIVILLOUS, AND PRECHORIONIC FIBRIN DEPOSITION, THREE VESSEL UMBILICAL CORD, AND PLACENTAL MEMBRANES WITH FOCAL AMNION HYPERPLASIA. Electronically Signed Eh George M.D. Gross Description The specimen is received fresh, labeled "placenta" and is a 631 gram, 25.0 x 25.0 x 1.5 cm placenta with attached membranes and umbilical cord. The attached membranes are camacho, translucent with focal opacities and insert marginally. The umbilical cord measures 28 cm in length and averages 1.1 cm in diameter. The cord inserts eccentrically, 5 cm to the nearest margin. No true knots or strictures are identified. Cut surface of the umbilical cord reveals 3 vessels. The surface is alan-blue with fibrin deposition and appropriate caliber vessels. The maternal surface is red-brown with focal defects. Sectioning reveals red-brown, spongy parenchyma. No focal lesions are identified. Spa Assistant Manager sections are submitted in three cassettes as follows: 1- membrane rolls and umbilical cord; 2-3- full thickness sections of placenta. 05/10/2017 [facility]05/10/2017
[2017-05-13] MEDS: LABETALOL HCL 200 MG TABLET (FP) PO PRN ×2 (15:29→21:33)
--- NOTE | 2017-05-13 15:34 | CONSULT ---
Consult Consult Specialty:: Nephrology Drs. Dasilva/ Cuco) Referred by:: Dr. Valdovinos Reason for Consultation:: Hypertension and Tachycardia in patient - History of Present Illness Chief Complaint: The patient is 31 y/o AA female who had LSCS last week, second baby. Developed Hypertension post . Reports that her first was normal and that there was no issues. - History Source History Provided By: Patient Limitations to Obtaining History: No Limitations - Past Medical History Pulmonary: No: Asthma, Cancer, COPD Gastrointestinal: No: Constipation Renal/: No: Renal Failure ...LMP: 07/15/16 Heme/Onc: Yes: Anemia Psych: No: Addictions, Depression - Alcohol/Substance Use Hx Alcohol Use: No - Smoking History Smoking history: Never smoked Have you smoked in the past 12 months: No Aproximately how many cigarettes per day: 0 Home Medications - Allergies Allergies/Adverse Reactions: Allergies Allergy/AdvReac Type Severity Reaction Status Date / Time No Known Allergies Allergy Verified 05/08/17 08:28 - Home Medications Home Medications: Ambulatory Orders Albuterol Sulfate Inhaler - [Ventolin Hfa Inhaler -] 1 - 2 inh PO PRN 09/07/16 Fluticasone Propionate [Flonase Allergy Relief] 9.9 ml NS DAILY 05/06/17 Folic Acid 1 mg PO DAILY 05/06/17 Glyburide 2.5 mg PO BID 05/06/17 Vitamins (Sjr) - 1 tab PO DAILY 05/06/17 Ibuprofen [Motrin -] 600 mg PO QID PRN #28 tablet 05/12/17 Oxycodone HCl/Acetaminophen [Percocet 5-325 mg Tablet -] 1 tab PO Q4H #30 tablet MDD 6 05/12/17 Nifedipine ER [Procardia Xl -] 30 mg PO DAILY #30 tab.er.24 05/13/17 Physical Exam Vital Signs: Vital Signs Temperature 98.0 F 05/12/17 22:00 Pulse Rate 111 H 05/13/17 15:13 Respiratory Rate 20 05/13/17 15:13 Blood Pressure 140/87 05/13/17 15:13 O2 Sat by Pulse Oximetry (%) 100 05/09/17 09:45 Constitutional: Yes: Well Nourished, No Distress, Anxious, Other (wants to go home) Eyes: Yes: WNL HENT: Yes: Atraumatic, Normocephalic Neck: Yes: Trachea Midline Cardiovascular: Yes: Regular Rate and Rhythm, Tachycardia, S1, S2, Other (Hear rate 110/ min). No: JVD Respiratory: Yes: CTA Bilaterally, Diminished Gastrointestinal: Yes: Normal Bowel Sounds Edema: Yes Edema: LLE: 1+, RLE: 1+ Labs: CBC, BMP 05/12/17 07:50 05/12/17 10:00 Problem List - Problems (1) Anemia Code(s): D64.9 - ANEMIA, UNSPECIFIED (2) delivery delivered Code(s): O82 - ENCOUNTER FOR DELIVERY WITHOUT INDICATION (3) Gestational hypertension without significant proteinuria, Code(s): O13.5 - GESTATNL HTN WITHOUT SIGNIFICANT PROTEIN, COMP THE PUERP Assessment/Plan 31 y/o female has developed Post Hypertension. BP not adequately controlled on Nifedipine. Developed Tachycardia on the Nifedipine. Patient denies any associated symptoms of headache, blurry vision, chest pain etc. PLAN: D/C Nifedipine Start on Labetelol 200 mg stat and q6H and Hold the meds if the BP runs too low. Patient planning to nurse the baby. It is not safe to discharge her today. The Tachycardia, while explainable on the Nifedipine, can also be totally unrelated. If not improving on the Labetelol, may require out patient work up. Thank you. Will follow with you. Susana Dasilva MD
[2017-05-13] MEDS: SENNOSIDES/DOCUSATE COMBO (SENNA PLUS) TABLET (UD) PO SCH (21:32)
[2017-05-13 22:29] VITALS: TEMP 98.7
[2017-05-14] MEDS: oxyCODONE HCL 5 MG TABLET PO PRN ×2 (02:24→07:23)
[2017-05-14] MEDS: ACETAMINOPHEN 325 MG TABLET (FP) PO PRN ×2 (02:24→07:24)
[2017-05-14] MEDS: SIMETHICONE 80 MG TAB.CHEW (FP) PO PRN ×2 (02:26→07:23)
[2017-05-14] MEDS: LABETALOL HCL 200 MG TABLET (FP) PO PRN ×2 (02:27→07:33)
[2017-05-14] MEDS: FERROUS SO4 325 MG TABLET (FP) PO SCH (10:03)
[2017-05-14] MEDS: PRENATAL VITAMINS W/ FOLIC ACID TABLET (FP) PO SCH (10:03)
[2017-05-14] MEDS: ENOXAPARIN NA (PORCINE) 40 MG/0.4 ML DISP.SYRIN SQ SCH (10:03)
--- NOTE | 2017-05-14 10:23 | PN ---
Progress Note (SOAP) - Subjective Chief Complaint: Pt doing well pt switched to 200mg po awaiting renal consult - Current Medications Current Medications: Active Medications Acetaminophen (Tylenol -) 650 mg PO Q4H PRN PRN Reason: FEVER OR PAIN Last Admin: 05/14/17 07:24 Dose: 650 mg Bisacodyl (Dulcolax Suppository -) 10 mg RC PRN PRN PRN Reason: CONSTIPATION Last Admin: 05/10/17 18:06 Dose: 10 mg Diphenhydramine HCl (Benadryl Injection -) 25 mg IVPUSH Q4H PRN PRN Reason: Pruritis Last Admin: 05/09/17 20:01 Dose: 25 mg Enoxaparin Sodium (Lovenox -) 40 mg SQ DAILY [facility] Last Admin: 05/14/17 10:03 Dose: 40 mg Ferrous Sulfate (Feosol -) 325 mg PO BID [facility] Last Admin: 05/14/17 10:03 Dose: 325 mg Labetalol HCl (Normodyne -) 200 mg PO Q6H PRN PRN Reason: HYPERTENSION Last Admin: 05/14/17 07:33 Dose: 200 mg Methylergonovine Maleate (Methergine Injection -) 0.2 mg IM Q4H PRN PRN Reason: Excessive Bleeding (L&D) Oxycodone HCl (Roxicodone -) 5 mg PO Q4H PRN PRN Reason: PAIN LEVEL 1-5 Oxycodone HCl (Roxicodone -) 10 mg PO Q4H PRN PRN Reason: PAIN LEVEL 6-10 Last Admin: 05/14/17 07:23 Dose: 10 mg Multivit/Folic Acid/Iron ( Vitamins (Sjr) -) 1 tab PO DAILY [facility] Last Admin: 05/14/17 10:03 Dose: 1 tab Senna/Docusate Sodium (Pericolace -) 2 tablet PO HS [facility] Last Admin: 05/13/17 21:32 Dose: 2 tablet Simethicone (Mylicon -) 80 mg PO Q4H PRN PRN Reason: GAS Last Admin: 05/14/17 07:23 Dose: 80 mg - Objective Vital Signs: Vital Signs Temperature 98.7 F 05/13/17 21:30 Pulse Rate 94 H 05/14/17 05:44 Respiratory Rate 18 05/14/17 05:44 Blood Pressure 132/76 05/14/17 05:44 O2 Sat by Pulse Oximetry (%) 100 05/09/17 09:45 Constitutional: Yes: Well Nourished, No Distress Respiratory: Yes: WNL, Regular, CTA Bilaterally Gastrointestinal: Yes: WNL ....Post : Yes: Uterus firm, Uterus non-tender Breast(s): Yes: WNL Musculoskeletal: Yes: WNL Extremities: Yes: WNL Edema: No Wound/Incision: Yes: Clean/Dry, Well Approximated, Steri Strips Neurological: Yes: WNL, Alert, Oriented Psychiatric: Yes: WNL, Alert, Oriented Labs Lab Results: CBC, BMP 05/12/17 07:50 05/12/17 10:00 Problem List - Problems (1) Labor established Code(s): [id number] - Assessment/Plan SP CS POD 5 Anemia gestational Htn GDM Obesity Plan OOB DC home in am if renal clears fu with renal continue labetalol
--- NOTE | 2017-05-14 10:54 | PN ---
Progress Note, Physician Chief Complaint: Patient doing well. Excellent BP control. 134/ 74 Heart rate down to 94 /min No chest pain, No shortness of breath. Good urine output. - Current Medication List Current Medications: Active Medications Acetaminophen (Tylenol -) 650 mg PO Q4H PRN PRN Reason: FEVER OR PAIN Last Admin: 05/14/17 07:24 Dose: 650 mg Bisacodyl (Dulcolax Suppository -) 10 mg RC PRN PRN PRN Reason: CONSTIPATION Last Admin: 05/10/17 18:06 Dose: 10 mg Diphenhydramine HCl (Benadryl Injection -) 25 mg IVPUSH Q4H PRN PRN Reason: Pruritis Last Admin: 05/09/17 20:01 Dose: 25 mg Enoxaparin Sodium (Lovenox -) 40 mg SQ DAILY [facility] Last Admin: 05/14/17 10:03 Dose: 40 mg Ferrous Sulfate (Feosol -) 325 mg PO BID [facility] Last Admin: 05/14/17 10:03 Dose: 325 mg Labetalol HCl (Normodyne -) 200 mg PO Q6H PRN PRN Reason: HYPERTENSION Last Admin: 05/14/17 07:33 Dose: 200 mg Methylergonovine Maleate (Methergine Injection -) 0.2 mg IM Q4H PRN PRN Reason: Excessive Bleeding (L&D) Oxycodone HCl (Roxicodone -) 5 mg PO Q4H PRN PRN Reason: PAIN LEVEL 1-5 Oxycodone HCl (Roxicodone -) 10 mg PO Q4H PRN PRN Reason: PAIN LEVEL 6-10 Last Admin: 05/14/17 07:23 Dose: 10 mg Multivit/Folic Acid/Iron ( Vitamins (Sjr) -) 1 tab PO DAILY [facility] Last Admin: 05/14/17 10:03 Dose: 1 tab Senna/Docusate Sodium (Pericolace -) 2 tablet PO HS [facility] Last Admin: 05/13/17 21:32 Dose: 2 tablet Simethicone (Mylicon -) 80 mg PO Q4H PRN PRN Reason: GAS Last Admin: 05/14/17 07:23 Dose: 80 mg - Objective Vital Signs: Vital Signs Temperature 98.7 F 05/13/17 21:30 Pulse Rate 94 H 05/14/17 05:44 Respiratory Rate 18 05/14/17 05:44 Blood Pressure 132/76 05/14/17 05:44 O2 Sat by Pulse Oximetry (%) 100 05/09/17 09:45 Constitutional: Yes: Well Nourished, Calm Eyes: Yes: Conjunctiva Clear HENT: Yes: Normocephalic Respiratory: Yes: CTA Bilaterally Gastrointestinal: Yes: Normal Bowel Sounds, Soft Edema: LLE: Trace, RLE: Trace Neurological: Yes: Alert, Oriented Psychiatric: Yes: Alert, Oriented Labs: CBC, BMP 05/12/17 07:50 05/12/17 10:00 INR, PTT INR 1.02 (0.82-1.09) 05/07/17 09:55 Problem List - Problems (1) Anemia Code(s): D64.9 - ANEMIA, UNSPECIFIED (2) delivery delivered Code(s): O82 - ENCOUNTER FOR DELIVERY WITHOUT INDICATION (3) Gestational hypertension without significant proteinuria, Code(s): O13.5 - GESTATNL HTN WITHOUT SIGNIFICANT PROTEIN, COMP THE PUERP Assessment/Plan 31 y/o female with associated Hypertension. BP in excellent control. Tachycardia improving also. The patient can be discharged on Labetelol 200 mg q6H. I will see her in my office in 1 week. Thank you for your trust in requesting this consult and allowing me to be of assistance. Susana Dasilva MD
[2017-05-14 11:28] VITALS: BP 132/85; PULSE 93
== END 2017-05-14 12:10 | disposition home or self-care (01) | DRG 540 ==
LOC: JDEL 02:40 → JLDR 09:25 → J3W 05-09 13:45
PROVIDERS: ADMIT Obstetrics & Gynecology; ATTEND Obstetrics & Gynecology
PROC: 10D00Z1 Extraction of Products of Conception, Low, Open Approach (ICD-10-PCS; principal; 2017-05-09)
DX: O62.1 Secondary uterine inertia (principal); O24.425 Gestational diabetes mellitus in childbirth, controlled by oral hypoglycemic drugs; O99.214 Obesity complicating childbirth; O99.824 Streptococcus B carrier state complicating childbirth; O69.1XX0 Labor and delivery complicated by cord around neck, with compression, not applicable or unspecified; O76 Abnormality in fetal heart rate and rhythm complicating labor and delivery; O75.89 Other specified complications of labor and delivery; G47.30 Sleep apnea, unspecified; J45.909 Unspecified asthma, uncomplicated; O13.5 Gestational [pregnancy-induced] hypertension without significant proteinuria, complicating the puerperium; D64.9 Anemia, unspecified; R00.0 Tachycardia, unspecified; Z3A.39 39 weeks gestation of pregnancy; Z37.0 Single live birth
CPT/HCPCS: 36415; 36600; 80048; 80053; 82803; 84550; 85025; 85610; 86593; 86762; 86850; 86900; 86901; 87340; 88307-TC